=== PATIENT | female | born 1950 | race Caucasian/White ===

== ENCOUNTER 2024-06-15 12:22 | Outpatient (CLI) | payer MEDICARE, OTHER, SELFPAY ==
[2024-06-15 12:36] VITALS: BP 158/78; PULSE 100; RESP 16; TEMP 35.8; O2SAT 97; BMI 35.4
[2024-06-15] MEDS: Romosozumab-AQQG 210 MG/2.34 ML Syringe SC (12:40)
== END 2024-06-15 23:59 | disposition home or self-care (01) ==
PROVIDERS: PCP Family Medicine; Referring Provider Internal Medicine Endocrinology, Diabetes & Metabolism; Visit Provider Internal Medicine Endocrinology, Diabetes & Metabolism
DX: M81.0 Age-related osteoporosis without current pathological fracture (principal)
CPT/HCPCS: 96372; J3111

== ENCOUNTER 2024-07-13 12:55 | Outpatient (CLI) | payer MEDICARE, OTHER, SELFPAY ==
[2024-07-13 13:02] VITALS: BP 157/91; PULSE 88; RESP 16; TEMP 36.2; O2SAT 95; BMI 35.4
[2024-07-13] MEDS: Romosozumab-AQQG 210 MG/2.34 ML Syringe SC (13:13)
== END 2024-07-13 23:59 | disposition home or self-care (01) ==
LOC: MEDOUTP 12:55
PROVIDERS: PCP Family Medicine; Referring Provider Internal Medicine Endocrinology, Diabetes & Metabolism; Visit Provider Internal Medicine Endocrinology, Diabetes & Metabolism
DX: M81.0 Age-related osteoporosis without current pathological fracture (principal)
CPT/HCPCS: 96372; J3111

== ENCOUNTER 2024-08-12 12:50 | Outpatient (CLI) | payer MEDICARE, OTHER, SELFPAY ==
[2024-08-12 13:00] VITALS: BP 148/82; PULSE 80; RESP 16; TEMP 36.8; O2SAT 96
[2024-08-12] MEDS: Romosozumab-AQQG 210 MG/2.34 ML Syringe SC (13:05)
== END 2024-08-12 23:59 | disposition home or self-care (01) ==
LOC: MEDOUTP 12:50
PROVIDERS: PCP Family Medicine; Referring Provider Internal Medicine Endocrinology, Diabetes & Metabolism; Visit Provider Internal Medicine Endocrinology, Diabetes & Metabolism
DX: M81.0 Age-related osteoporosis without current pathological fracture (principal)
CPT/HCPCS: 96372; J3111

== ENCOUNTER 2024-09-16 12:47 | Outpatient (CLI) | payer MEDICARE, OTHER, SELFPAY ==
[2024-09-16 12:54] VITALS: BP 149/76; PULSE 77; RESP 16; TEMP 35.8; O2SAT 99
[2024-09-16] MEDS: Romosozumab-AQQG 210 MG/2.34 ML Syringe SC (12:56)
== END 2024-09-16 23:59 | disposition home or self-care (01) ==
LOC: MEDOUTP 12:47
PROVIDERS: PCP Family Medicine; Referring Provider Internal Medicine Endocrinology, Diabetes & Metabolism; Visit Provider Internal Medicine Endocrinology, Diabetes & Metabolism
DX: M81.0 Age-related osteoporosis without current pathological fracture (principal)
CPT/HCPCS: 96372; J3111

== ENCOUNTER 2024-10-14 12:24 | Outpatient (CLI) | payer MEDICARE, OTHER, SELFPAY ==
[2024-10-14 13:07] VITALS: BP 147/74; PULSE 74; RESP 16; TEMP 36.1; O2SAT 99
== END 2024-10-14 23:59 | disposition home or self-care (01) ==
LOC: MEDOUTP 12:25
PROVIDERS: PCP Family Medicine; Referring Provider Internal Medicine Endocrinology, Diabetes & Metabolism; Visit Provider Internal Medicine Endocrinology, Diabetes & Metabolism
DX: M81.0 Age-related osteoporosis without current pathological fracture (principal)
CPT/HCPCS: 96372; J3111

== ENCOUNTER 2024-11-11 12:36 | Outpatient (CLI) | payer MEDICARE, OTHER, SELFPAY ==
[2024-11-11 12:49] VITALS: BP 121/77; PULSE 78; RESP 16; TEMP 36.8; O2SAT 98
== END 2024-11-11 23:59 | disposition home or self-care (01) ==
LOC: MEDOUTP 12:36
PROVIDERS: PCP Family Medicine; Referring Provider Internal Medicine Endocrinology, Diabetes & Metabolism; Visit Provider Internal Medicine Endocrinology, Diabetes & Metabolism
DX: M81.0 Age-related osteoporosis without current pathological fracture (principal)
CPT/HCPCS: 96372

== ENCOUNTER 2024-12-09 12:57 | Outpatient (CLI) | payer MEDICARE, OTHER, SELFPAY ==
[2024-12-09 13:00] VITALS: BP 143/88; PULSE 95; RESP 16; TEMP 35.8; O2SAT 95
== END 2024-12-09 23:59 | disposition home or self-care (01) ==
LOC: MEDOUTP 12:57
PROVIDERS: PCP Family Medicine; Referring Provider Internal Medicine Endocrinology, Diabetes & Metabolism; Visit Provider Internal Medicine Endocrinology, Diabetes & Metabolism
DX: M81.0 Age-related osteoporosis without current pathological fracture (principal)
CPT/HCPCS: 96372; J3111

== ENCOUNTER 2025-01-06 12:45 | Outpatient (CLI) | payer MEDICARE, OTHER, SELFPAY ==
[2025-01-06 13:00] VITALS: BP 122/65; PULSE 72; RESP 16; TEMP 36.2; O2SAT 98
== END 2025-01-06 23:59 | disposition home or self-care (01) ==
LOC: MEDOUTP 12:46
PROVIDERS: PCP Family Medicine; Referring Provider Internal Medicine Endocrinology, Diabetes & Metabolism; Visit Provider Internal Medicine Endocrinology, Diabetes & Metabolism
DX: M81.0 Age-related osteoporosis without current pathological fracture (principal)
CPT/HCPCS: 96372; J3111

== ENCOUNTER 2025-02-03 12:48 | Outpatient (CLI) | payer MEDICARE, OTHER, SELFPAY ==
[2025-02-03 13:00] VITALS: BP 151/75; PULSE 85; RESP 16; TEMP 36.1; O2SAT 98
== END 2025-02-03 23:59 | disposition home or self-care (01) ==
LOC: MEDOUTP 12:48
PROVIDERS: PCP Family Medicine; Referring Provider Internal Medicine Endocrinology, Diabetes & Metabolism; Visit Provider Internal Medicine Endocrinology, Diabetes & Metabolism
DX: M81.0 Age-related osteoporosis without current pathological fracture (principal)
CPT/HCPCS: 96372; J3111

== ENCOUNTER 2025-03-03 12:50 | Outpatient (CLI) | payer MEDICARE, OTHER, SELFPAY ==
[2025-03-03 13:00] VITALS: BP 153/77; PULSE 83; RESP 16; TEMP 35.6; O2SAT 97
== END 2025-03-03 23:59 | disposition home or self-care (01) ==
LOC: MEDOUTP 12:50
PROVIDERS: PCP Family Medicine; Referring Provider Internal Medicine Endocrinology, Diabetes & Metabolism; Visit Provider Internal Medicine Endocrinology, Diabetes & Metabolism
DX: M81.0 Age-related osteoporosis without current pathological fracture (principal)
CPT/HCPCS: 96372; J3111